=== PATIENT | female | born 1960 | race Caucasian/White ===

== ENCOUNTER → 2017-01-30 | Outpatient (CLI) | payer OTHER ==
--- NOTE | 2017-01-30 23:01 | MR ---
EXAMINATION TYPE: MR lumbar spine wo con DATE OF EXAM: 01/30/2017 COMPARISON: NONE HISTORY: Chronic low back pain, BLE radic x 30 years, no hx surgery/trauma TECHNIQUE: Multiplanar, multisequence imaging of the lumbar spine is performed without IV contrast. FINDINGS: Localizer image shows slight levoconvex scoliosis centered at thoracolumbar junction. Sagit jackson images of the lumbar spine show vertebral body heights and alignment to appear satisfactory. Mult ilevel disc desiccation is present. There is moderate disc space narrowing L1-L2 level and mild disc space narrowing L3-L4 level. Multilevel posterior disc herniations are seen on sagittal images. Incr eased signal posteriorly consistent with annular tear is noted L4-L5 level. The conus medullaris is n ormal in position and signal ending superior L1 level. The bone marrow signal intensity is within no rmal limits. Axial images beginning at T12-L1 level which is felt within normal limits. Axial images at L1-L2 level mild to moderate broad-based posterior disc protrusion mildly facing ante rior thecal sac. Bilateral neural foramina are patent. Axial images at L2-L3 level shows mild broad-based disc bulge mildly effacing the anterior thecal sac . Bilateral neural foramina are patent. Axial images at L3-L4 level broad-based posterior disc protrusion and mild facet degenerative changes bilaterally. There is mild effacement of the anterior thecal sac. There is mild bilateral anterior i nferior neural foraminal narrowing. Axial images at L4-L5 level show mild to moderate facet degenerative changes bilaterally. There is br oad disc bulge with focal central disc protrusion component effacing the anterior thecal sac on axial image 10. Bilateral neural foramina are patent at this level. Axial images at L5-S1 level show mild to moderate left greater than right facet degenerative changes bilaterally. Spinal canal is preserved. Bilateral neural foramina are patent. No suspicious retroperitoneal findings are identified. IMPRESSION: Multilevel degenerative changes in lumbar spine as detailed above.
== END | disposition home or self-care (01) ==
LOC: RADMRIMAIN 20:57
PROVIDERS: ATTEND Psychiatry & Neurology Neurology
DX: M47.816 Spondylosis without myelopathy or radiculopathy, lumbar region (principal); Z88.1 Allergy status to other antibiotic agents
CPT/HCPCS: 72148

== ENCOUNTER → 2017-10-02 | Outpatient (CLI) | payer OTHER ==
--- NOTE | 2017-10-03 12:14 | MM ---
Reason for exam: screening (asymptomatic). Last mammogram was performed 1 year and 11 months ago. History: Patient is postmenopausal and is nulliparous. Took estrogen for 2 years. Physical Findings: A clinical breast exam by your physician is recommended on an annual basis and results should be correlated with mammographic findings. MG 3D Screening Mammo W/Cad Bilateral CC and MLO view(s) were taken. Prior study comparison: November 04, 2015, mammogram, performed at [facility]. December 16, 2010, mammogram, performed at [facility]. The breast tissue is heterogeneously dense. This may lower the sensitivity of mammography. Stable benign calcifications in the left breast. Enlarged axillary lymph nodes bilaterally. ASSESSMENT: Incomplete: need additional imaging evaluation, BI-RAD 0 RECOMMENDATION: Ultrasound of both breasts. (axilla) [facility] will attempt to contact patient to return for ultrasound.
== END | disposition home or self-care (01) ==
LOC: RADMAMWWP 15:32
PROVIDERS: ATTEND Internal Medicine Geriatric Medicine
DX: Z12.31 Encounter for screening mammogram for malignant neoplasm of breast (principal)
CPT/HCPCS: 77063; 77067

== ENCOUNTER → 2017-10-05 | Outpatient (CLI) | payer OTHER ==
--- NOTE | 2017-10-05 15:52 | US ---
EXAMINATION TYPE: US thyroid st tissue head/neck DATE OF EXAM: 10/05/2017 COMPARISON: NONE CLINICAL HISTORY: 56-year-old female E04.1 Thyroid nodule;. Soft tissue palpable area on rt lateral n roman TECHNIQUE: Multiple sonographic images of the thyroid gland are obtained. FINDINGS: GLAND SIZE: Right Lobe: 3.1 x 1.1 x 1.1cm Overall Parenchyma: homogeneous Left Lobe: 3.3 x 1.0 x 0.8 cm Overall Parenchyma: homogeneous Isthmus Thickness: 0.2 cm NODULES RIGHT: # of nodules measured on right: 0 LEFT: # of nodules measured on left: 0 ISTHMUS: # of nodules measured in the isthmus: 0 Scanned over the right lateral upper soft tissue palpable mass. There is a 2.6 x 1.7 x 2.0cm solid hypoechoic vascular mass located just below the ear/mandible. IMPRESSION: 1. Thyroid gland without discrete nodules. 2. Additional targeted scanning at the patient's right upper neck palpable site shows a 2.6 cm solid, vascular mass. Tissue sampling is recommended either of this or the patient's axillary lymphadenopat hy to exclude neoplasm/metastatic disease.
--- NOTE | 2017-10-09 09:51 | USB ---
Reason for exam: additional evaluation requested from abnormal screening. History: Patient is postmenopausal and is nulliparous. Took estrogen for 2 years. Physical Findings: Nurse Summary: bilateral palpable axilla lumps (nurse mj). US Breast Workup Limited CR Right limited breast ultrasound including focal area of concern, retroareolar and axilla demonstrates a 4.0 x 1.9 x 3.1cm nodule in the axilla. Left limited breast ultrasound including focal area of concern, retroareolar and axilla demonstrates a 3.9 x 2.3 x 2.8cm nodule in the axilla. Multiple lymph nodes bilaterally, largest measured. Differential considerations include entities such as metastatic disease, leukemia/lymphoma, sarcoid, systemic infections and connective tissue disorders. These results were verbally communicated with the patient and result sheet given to the patient on 10/05/17. ASSESSMENT: Suspicious, BI-RAD 4 RECOMMENDATION: Surgical consultation and ultrasound core biopsy of both breasts. (suspicious area in axilla) Patient request to see Dr. Vasquez for surgical consult, [place] at the office states Dr. Vasquez will review reports from thyroid u/s and axilla u/s on 10/10 and office to contact pt. to schedule appt. Dr. Aguirre office notified. Patient notified to expect phone call from Dr. Vasquez office. PRELIMINARY REPORT CALLED AND FAXED TO DR. VASQUEZ ON 10/09/17.
== END | disposition home or self-care (01) ==
LOC: RADUSWWP 12:07
PROVIDERS: ATTEND Internal Medicine Geriatric Medicine
DX: R92.8 Other abnormal and inconclusive findings on diagnostic imaging of breast (principal); E04.2 Nontoxic multinodular goiter
CPT/HCPCS: 76536

== ENCOUNTER → 2017-11-12 | Day surgery (SDC) | payer OTHER ==
[2017-11-12 13:31] VITALS: RESP 16; BMI 21.6
[2017-11-12 15:08] VITALS: BP 128/79; PULSE 80; TEMP 97.8
--- NOTE | 2017-11-13 11:25 | USB ---
EXAMINATION TYPE: US breast needle core LT, US breast needle core RT DATE OF EXAM: 11/12/2017 COMPARISON: 10/05/2017 and 10/02/2017 CLINICAL HISTORY: R59.0 AXILLARY LYMPHADENOPATHY. PROCEDURE: Benefits and risks were discussed with the patient. Preprocedural consent and preprocedural timeout were performed. The bilateral axilla was scanned bilaterally adenopathy. The safest locations were identified with peripheral vascular flow evaluated on ultrasound. The area was sterilely prepped and draped. 10 cc of lidocaine buffered with bicarbonate was utilized to anesthetize the skin surface and deeper subcutaneous soft tissues leading up to the bilateral axillary adenopathy. The left axillary lymph node was first biopsied with 3 core samples utilizing a 18-gauge Temno device and subsequently the right axilla was biopsied utilizing a 16-gauge Bard device. Biopsies were performed under direct ultrasound guidance. Additionally bilateral Hydromark biopsy marker clips were placed within the biopsied bilateral lymph nodes. Postprocedural evaluation for hematoma was negative sonographically. Patient tolerated the procedure well. Hemostasis was achieved. The patient was kept in the radiology department for short stay and discharged in stable condition. IMPRESSION: Successful ultrasound-guided biopsy of bilateral axillary adenopathy with placement of postprocedural Hydromark clips. Samples were sent to the laboratory department for analysis and flow cytometry. Pathology pending. Pathology Result: Malignant A. 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 See comment. B. 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 See comment. Recommendation Surgical consult of the left breast. (follicular lymphoma multiple lymph nodes) MTDD
== END ==
LOC: RADUSWWP 12:55
PROVIDERS: ATTEND Student in an Organized Health Care Education/Training Program
DX: C82.14 Follicular lymphoma grade II, lymph nodes of axilla and upper limb (principal); Z88.0 Allergy status to penicillin
CPT/HCPCS: 88305; 88342; 88341; 76942; 38505; A4648; J2001; 19084

== ENCOUNTER → 2017-11-24 | Outpatient (CLI) | payer OTHER ==
--- NOTE | 2017-11-25 20:55 | PE ---
EXAMINATION TYPE: PET CT fusion skull to thigh DATE OF EXAM: 11/24/2017 CLINICAL HISTORY: 56-year-old female initial staging lymphoma diagnosed in the neck on 10/13/2017. TECHNIQUE: Following the intravenous administration of 11.4 mCi of F-18 FDG, whole body images are performed from the skull base to the midthigh. Images are reviewed on the computer in the coronal, a xial, and sagittal planes. Reconstructed rotating images are created on independent workstation and reviewed on the computer. A localization and attenuation correction CT is performed in conjunction with the PET scan. Glucose level: 80 mg/dL CTDI: 2.75 mGy DLP: 245.16 mGy-cm COMPARISON: None. FINDINGS: PET: Asymmetric enlargement of the left mandibular foramen possibly due to lymphomatous involvement, max S UV 3.7. There is some focal thickening and increased density within the subcutaneous fat of the right posteri or upper neck, max SUV 2.8, possible site of a previous excisional lymph node biopsy. This can be cor related clinically. There is masslike soft tissue enlargement in the right nasopharynx, max SUV 5.3. Right parotid space lymphadenopathy measuring up to 2.4 cm, max SUV 7.6. Right submandibular lymph nodes measure up to 1.7 cm, max SUV 6.7. Left submandibular space lymph nodes measure 2.0 cm, max SUV 7.3. Station 2A lymph noted on the left measures 1.2 cm, max SUV 7.0. A 1 cm station 3 lymph node on the left, max SUV 5.0. Conglomerate tyshawn mass at the right thoracic inlet measures 3.0 x 1.9 cm, max SUV 5.9. Right subpectoral lymph node measures 2.1 cm, max SUV 7.9. Multiple right axillary lymph nodes measure up to 3.1 cm, maximum SUV 5.6. Multiple left axillary lymph nodes measure up to 3.5 cm, maximum CBD 6.3. Precarinal lymph node measures 1.9 cm, max SUV 6.5. Small 1.1 cm subcarinal lymph node shows maximum CBD 0.5. There is focal patchy groundglass measuring 1.2 cm and the posterior right lower lobe without any sig nificant FDG uptake, likely a small infectious/inflammatory focus. Average liver SUV 1.9. Variable segmental, moderately intense FDG uptake along the ascending colon, max SUV 6.2 likely physi ologic. There is a rounded structure measuring 2.2 cm in the posterior, upper left adnexa without any FDG upt clari, likely corresponding to the ovary or an underlying ovarian cyst. Otherwise, physiologic FDG uptake within the body. ATTENUATION CORRECTION CT: Mild mucosal thickening left sided ethmoid air cells. Mastoid air cells well pneumatized. Cervical ly mphadenopathy described above and soft tissue mass in the right nasopharynx. Heart normal size without pericardial effusion. Ascending aorta is ectatic and 3.9 cm. Mild centrilob ular emphysema. Dependent atelectasis. No consolidation or pleural effusion. No dilated small bowel, free fluid, or free air. No mesenteric or retroperitoneal lymphadenopathy. No rmal appendix. Mild stool burden with occasional colonic diverticula. There is a tiny 1.1 cm right pa ramedian umbilical hernia with a narrow 3 mm neck. Bladder nondistended. Uterus surgically absent. Left-sided pelvic phleboliths. Right ovary not clearl y seen. Bones: Degenerative changes lower lumbar spine. Levoconvex curvature thoracolumbar junction. No osseo us destructive process. IMPRESSION: 1. Lymphomatous involvement within the head and neck includes: Right nasopharyngeal mass, right parot id space, bilateral tyshawn stations 1B, left level 2A and left level 3. There is also asymmetric enlar gement of the left mandibular foramen with associated hypermetabolism suggesting lymphomatous involve ment. 2. Lymphomatous involvement within the chest includes: 3.0 cm tyshawn mass at the right thoracic inlet, right subpectoral lymph node (2.1 cm), bilateral axillary lymph nodes (measuring up to 3.5 cm), and precarinal and subcarinal lymph nodes (up to 1.9 cm). 3. No disease below the diaphragm. There is some focal soft tissue and skin thickening along the rig ht posterior upper neck that has mild uptake and may correspond to site of a recent excisional lymph node biopsy. Clinically correlate.
== END | disposition home or self-care (01) ==
LOC: RADPETMAIN 14:04
PROVIDERS: ATTEND Internal Medicine Hematology & Oncology
DX: C82.18 Follicular lymphoma grade II, lymph nodes of multiple sites (principal)
CPT/HCPCS: 78815; A9552

== ENCOUNTER → 2018-03-16 | Outpatient (CLI) | payer OTHER | LOC: RADPETMAIN 07:55 | PROVIDERS: ATTEND Internal Medicine Hematology & Oncology | DX: Z53.9 Procedure and treatment not carried out, unspecified reason (principal) ==

== ENCOUNTER → 2018-03-16 | Outpatient (CLI) | payer OTHER ==
--- NOTE | 2018-03-18 13:14 | PE ---
EXAMINATION TYPE: PET CT fusion skull to thigh DATE OF EXAM: 03/16/2018 COMPARISON: No prior CT examinations. Prior PET/CT: 11/24/2017 HISTORY: Lymphoma, C 82.181 TECHNIQUE: Following the intravenous administration of 12.72 mCi of F-18 FDG, whole body images are performed from the skull vertex to the midthigh. Images are reviewed on the computer in the coronal, axial, and sagittal planes. Reconstructed rotating images are created on independent workstation an d reviewed on the computer. A localization and attenuation correction CT is performed in conjunctio n with the PET scan. DLP: 306.38 mGycm SCAN: Subsequent Blood glucose: 97 mg/dL Average Mediastinum SUV: 1.24 Average Liver SUV: 1.94 FINDINGS: Brain: Imaging is performed through the entire brain. No suspicious asymmetric uptake is evident. No suspicious photopenic defects are evident. NECK: No abnormal uptake THORAX: Some very vague increased uptake within the small lymph node in the left axillary region is p resent with an SUV value of 0.86. This within the normal range. PET image 102. Suspicious uptake with in the axillary regions is not evident. No suspicious mediastinal or hilar uptake is evident. ABDOMEN: No abnormal uptake PELVIS: No abnormal uptake OSSEOUS STRUCTURES: No abnormal uptake LOCALIZATION CT: There are scattered small axillary lymph nodes present. The ascending thoracic aorta at the level of main pulmonary artery is 3.3 cm. The main pulmonary artery bifurcation is 2.8 cm. Th e appendix is unremarkable. Some fecal debris is within the distal colon. COMPARISON: There is been significant resolution of the previous adenopathy. IMPRESSION: 1. No suspicious uptake to suggest residual or recurrent lymphoma. There is been significant improvem ent of previous hyperintense activity within scattered lymphadenopathy.
== END | disposition home or self-care (01) ==
LOC: RADPETMAIN 07:52
PROVIDERS: ATTEND Internal Medicine Hematology & Oncology
DX: C82.18 Follicular lymphoma grade II, lymph nodes of multiple sites (principal)
CPT/HCPCS: 78815; A9552

== ENCOUNTER → 2019-06-27 | Outpatient (CLI) | payer OTHER ==
--- NOTE | 2019-07-01 07:43 | PE ---
Nuclear medicine PET/CT HISTORY: Lymphoma of the neck, subsequent Patient received 10.1 mCi F-18 FDG intravenously in delayed scanning was performed from the skull bas e to the mid thighs. Localization and attenuation correction CT scan was performed. Correlation to prior nuclear medicine PET/CT 03/16/2018 neck, chest: Along the masseter muscles there is increased uptake. Focus of uptake is also present al butch the level of the tongue or anterior maxilla. In the submandibular location on the right, there is a lymph node which is enlarged and shows associated hypermetabolic uptake. This is an interval findi ng. SUV is 4.7. Small right axillary nodes show some mild uptake, SUV 1.5. There is no mediastinal ad enopathy. Minimal uptake present in a nonenlarged node in the retrocaval pretracheal mediastinum. The re is no pleural or pericardial effusion. There is no evident lung mass. ABDOMEN: There is no liver mass. No retroperitoneal adenopathy or ascites. No suspicious hypermetabol ic uptake. No pelvic or inguinal adenopathy. Osseous structures are unremarkable. IMPRESSION: Abnormal uptake in the neck and right axilla. Masseter uptake may be due to bruxism
== END | disposition home or self-care (01) ==
LOC: RADPETMAIN 13:07
PROVIDERS: ATTEND Internal Medicine Hematology & Oncology
DX: R93.89 Abnormal findings on diagnostic imaging of other specified body structures (principal); C82.18 Follicular lymphoma grade II, lymph nodes of multiple sites
CPT/HCPCS: 78815; A9552

== ENCOUNTER → 2019-07-11 | Outpatient (CLI) | payer OTHER | END | disposition home or self-care (01) | LOC: LABWHC1 09:56 | PROVIDERS: ATTEND Internal Medicine Hematology & Oncology | DX: Z11.59 Encounter for screening for other viral diseases (principal) ==

== ENCOUNTER → 2019-10-03 | Outpatient (CLI) | payer OTHER ==
--- NOTE | 2019-10-06 17:27 | PE ---
Nuclear medicine PET/CT HISTORY: Lymphoma, subsequent Patient received 11.4 mCi F-18 FDG intravenously and delayed scanning was performed from the skull ba se to the mid thighs. Localization and attenuation correction CT scan was performed. Correlation to prior nuclear medicine PET/CT 06/27/2019 Chest and neck: Submandibular node on the right shows some associated uptake and is mildly enlarged. There is some uptake noted at the level of the level of the tip of the tongue which is indeterminate. Uptake along the muscles of mastication on the left may be physiologic as is the musculature activit y of the right pectoral region and about the shoulders. There is retrocaval pretracheal node which is mildly enlarged and shows mild uptake. There is no pleural or pericardial effusion. No evident lung mass. No evident uptake in the right axillary region as previously noted. ABDOMEN: No evident liver mass. No retroperitoneal adenopathy or suspicious hypermetabolic uptake. Pe ripherally calcified low dense lesion present in the left hemipelvis measures 2.9 cm in AP dimension and shows no uptake, no evident pelvic adenopathy or free fluid. Osseous structures are within normal limits. IMPRESSION: Mild mediastinal node enlargement is an interval finding, retrocaval pretracheal node has increased in size slightly in the interval. Uptake again noted in the right submandibular node. Righ t axillary node no longer shows uptake. There is uptake at the level of the tip of the tongue which m ay be physiologic.
== END | disposition home or self-care (01) ==
LOC: RADPETMAIN 11:11
PROVIDERS: ATTEND Internal Medicine Hematology & Oncology
DX: C82.18 Follicular lymphoma grade II, lymph nodes of multiple sites (principal); Z92.21 Personal history of antineoplastic chemotherapy
CPT/HCPCS: 78815; A9552

== ENCOUNTER → 2020-01-02 | Outpatient (CLI) | payer OTHER ==
--- NOTE | 2020-01-05 10:49 | PE ---
EXAMINATION TYPE: PET CT fusion skull to thigh DATE OF EXAM: 01/02/2020 COMPARISON: Prior PET/CT October 03, 2019 and older studies. HISTORY: Lymphoma progress study. Originally diagnosed November 2017 treated with chemotherapy through November 2019 TECHNIQUE: Following the intravenous administration of 11.43 mCi of F-18 FDG, whole body images are performed from the skull base to the midthigh. Images are reviewed on the computer in the coronal, a xial, and sagittal planes. Reconstructed rotating images are created on independent workstation and reviewed on the computer. A noncontrast CT is performed in conjunction with the PET scan. Blood glu cose level equals 97. SCAN: Subsequent Scan FINDINGS: Mean SUV mediastinum: 0.96 Mean SUV liver: 1.83 SKULL BASE AND NECK: Stable in size right submandibular lymph node measuring 1.1 x 0.9 cm current ma x SUV 2.63. Symmetric diffuse masseter uptake on current study suggests recent meal ingestion prior t o scanning which is not advised. No new areas of abnormal hypermetabolic uptake or suspicious adenopa thy. CHEST, MEDIASTINUM, AND HILAR REGION: There is persistent suspicious pericarinal lymph node measuring 1.3 x 0.8 cm, max SUV is 4.29 on axial image 81. No new areas of abnormal hypermetabolic uptake. No axillary adenopathy noted. ABDOMEN AND PELVIS: No new areas of abnormal hypermetabolic uptake. No new adenopathy. No new suspic ious focal uptake in liver or spleen. OSSEOUS STRUCTURES: No new suspicious hypermetabolic uptake. OTHER CT: New small air-fluid level in the right maxillary sinus, correlate clinically. Coronary artery calcification redemonstrated which is noted marker for underlying coronary artery dis ease. Patient has little intra-abdominal fat making evaluation suboptimal. There is right-sided pelvic phle bolith. Scoliosis centered thoracolumbar junction redemonstrated. IMPRESSION: Improved abnormal hypermetabolic uptake right submandibular lymph node. Persistent hyperm etabolic uptake in the paracarinal lymph node however. No new areas of abnormal hypermetabolic uptake .
== END | disposition home or self-care (01) ==
LOC: RADPETMAIN 11:23
PROVIDERS: ATTEND Internal Medicine Hematology & Oncology
DX: C82.18 Follicular lymphoma grade II, lymph nodes of multiple sites (principal); Z92.21 Personal history of antineoplastic chemotherapy
CPT/HCPCS: 78815; A9552

== ENCOUNTER → 2020-07-09 | Outpatient (CLI) | payer OTHER ==
--- NOTE | 2020-07-12 06:28 | PE ---
EXAMINATION TYPE: PET CT fusion skull to thigh DATE OF EXAM: 07/09/2020 COMPARISON: Prior PET/CT January 02, 2020 and older studies. HISTORY: History of grade 2 follicular lymphoma diagnosed 2017 , completed chemotherapy May 2020 TECHNIQUE: Following the intravenous administration of 10.0 mCi of F-18 FDG, whole body images are p erformed from the skull base to the midthigh. Images are reviewed on the computer in the coronal, ax ial, and sagittal planes. Reconstructed rotating images are created on independent workstation and r eviewed on the computer. A localization and attenuation correction CT is performed in conjunction w ith the PET scan. Blood glucose level equals 82. SCAN: Subsequent Scan FINDINGS: Mean SUV mediastinum: 0.86 Mean SUV liver: 1.97 SKULL BASE AND NECK: Stable in size right submandibular lymph node measuring 1.1 x 0.9 cm current ma x SUV 1.83. Asymmetric left-sided masseter hypermetabolic uptake current study Max SUV 6.18 without obvious focal mass or adenopathy likely physiologic as there was symmetric more prominent uptake on prior. Correlate clinically. No new areas of suspicious hypermetabolic adenopathy on current study. CHEST, MEDIASTINUM, AND HILAR REGION: Improved pericarinal lymph node now punctate in size, is ametab olic near axial image 68. No new areas of abnormal hypermetabolic uptake. No axillary adenopathy noted. ABDOMEN AND PELVIS: No new areas of abnormal hypermetabolic uptake. No new adenopathy. No new suspic ious focal uptake in liver or spleen. OSSEOUS STRUCTURES: No new suspicious hypermetabolic uptake. OTHER CT: Coronary artery calcification redemonstrated which is noted marker for underlying coronary artery dis ease. Ectasia of the ascending aorta measuring up to 3.6 cm in diameter. Patient has little intra-abdominal fat making evaluation suboptimal. There are occasional scattered t iny pelvic phleboliths. Scoliosis centered upper lumbar spine redemonstrated. IMPRESSION: Positive treatment response. Improved pericarinal lymph node. No new areas of abnormal hy permetabolic uptake or adenopathy. Asymmetric left masseter uptake on current study noted.
== END | disposition home or self-care (01) ==
LOC: RADPETMAIN 10:05
PROVIDERS: ATTEND Internal Medicine Hematology & Oncology
DX: C82.10 Follicular lymphoma grade II, unspecified site (principal)
CPT/HCPCS: 78815; A9552

== ENCOUNTER → 2021-07-12 | Outpatient (CLI) | payer OTHER ==
[~2021-07-12] MED LIST: TIXAGEVIMAB/CILGAVIMAB (EUA) 300 MG/3 ML COMBO.PKG IM NR
[2021-07-12 11:22] VITALS: RESP 16; TEMP 98.3
[2021-07-12 12:28] VITALS: BP 151/89; PULSE 71
== END | disposition home or self-care (01) ==
LOC: PROCWHC3 10:43
PROVIDERS: ATTEND Internal Medicine Hematology & Oncology
DX: C82.18 Follicular lymphoma grade II, lymph nodes of multiple sites (principal)
CPT/HCPCS: Q0220; M0220

== ENCOUNTER → 2022-12-19 | Outpatient (CLI) | payer OTHER ==
--- NOTE | 2022-12-19 12:34 | MR ---
EXAMINATION TYPE: MR lumbar spine wo con DATE OF EXAM: 12/19/2022 COMPARISON: MRI lumbar spine 01/30/2017 HISTORY: Low back pain into lizz lower legs TECHNIQUE: Multiplanar, multisequence images of the lumbar spine were acquired without IV contrast. FINDINGS: Lumbar segments are intact. No paraspinal masses are identified. Conus medullaris has a normal appe arance. Diffusely heterogenous bone marrow signal. Levocurvature of the lumbar spine with apex at L3. No spondylolisthesis. Stable T2 hyperintense 2.8 cm lesion anterior to the S1-S2 vertebral bodies wi th thin septation. Stability indicates a benign process. L1-L2: Broad-based disc bulge with mild effacement of the intrathecal sac. Bilateral facet arthropath y. Left neural foramen is patent. Moderate to severe right neural foraminal stenosis. L2-L3: No herniation, protrusion or disc bulging. No canal stenosis is present. Bilateral facet arth ropathy with moderate right neuroforaminal stenosis. The left neural foramen is patent. L3-L4: Broad-based disc bulge with ligamentum flavum buckling and bilateral facet arthropathy contrib shweta to minimal central canal stenosis. Moderate left and mild right neuroforaminal stenosis. L4-L5: Central disc protrusion with mild to moderate effacement of the anterior thecal sac. Bilateral facet arthropathy and ligamentum flavum buckling. Mild right and moderate left neural foraminal sten osis. L5-S1: No herniation, protrusion or disc bulging. No canal stenosis is present. Bilateral facet arth ropathy. Foramina are patent bilaterally. IMPRESSION: 1. L4-L5 disc herniation with bilateral facet arthropathy and ligamenta flavum buckling contribute to [id number] central canal stenosis. Mild right and moderate left neural foraminal stenosis at t his level. 2. Multilevel degenerative disc disease and facet arthropathy as described above.
== END | disposition home or self-care (01) ==
LOC: RADMRIMAIN 10:53
PROVIDERS: ATTEND Orthopaedic Surgery
DX: M47.816 Spondylosis without myelopathy or radiculopathy, lumbar region (principal); M48.061 Spinal stenosis, lumbar region without neurogenic claudication; M99.73 Connective tissue and disc stenosis of intervertebral foramina of lumbar region; M51.36 Other intervertebral disc degeneration, lumbar region
CPT/HCPCS: 72148

== ENCOUNTER → 2023-01-23 | Outpatient (CLI) | payer OTHER ==
--- NOTE | 2023-01-23 13:49 | P.PAINPG ---
PQRS Measure Charge Sheet Comment: HISTORY OF PRESENT ILLNESS: A 62 yr old female as a referral from Dr Ghotra presents today w severe and chronic LBP > 2 yrs secondary to DDD, spondylosis and facet arthropathy without myelopathy for evaluation. Pt states pain level is provoked at 7 /10 in intensity, constant, localized in the mid to lower lumbar spine, predominantly axial, achy in character w occasional shooting pain towards the BLEs. Pain is provoked by over activity. Pain is alleviated by injections in the past, PT x 3 wks which she is currently in, medications (Cymbalta, Flexeril), topical BioFreeze gel, heat, repositioning and rest. Oswestry axial pain score at 24. PMH: OA, SLE, RA, Hypothyroidism, Anxiety PSH: Denies SH: Works as a nurse. +tobacco use, No ETOH abuse, No illicit drug use FH: Non contributory All: See list Meds: See list REVIEW OF ORGAN SYSTEMS: CONSTITUTIONAL: No fevers or chills. No recent weight loss. NEUROLOGICAL: + numbness and tingling along the distal extremities. No seizure disorders or headaches. MUSCULOSKELETAL: + pain PSYCHIATRIC: Denies current depression or suicidal thoughts. Physical Examinations : Constitutional : Cooperative , not in acute distress . Neurologic : Cranial nerve II to XII intact. No focal ne urological deficits. Psychiatric : alert & oriented x 3. Matching mood & appropriate affect. Judgment & insight intact. Musculoskeletal : Cervical Spine Motor strength in the deltoid and biceps: Normal right side. Normal Left side Motor strength biceps and the wrist extensors: Normal right side . Normal left side Motor strength in the triceps muscle: Normal right side. Normal left side Deep tendon reflexes: Normal at the biceps. Normal at Brachioradialis. Normal at triceps Vertebral body tenderness to deep pa lpation over Cervical facet loading test: positive bilaterally Spurling test: positive bilaterally Neck distraction test: positive bilaterally Marie sign: positive bilaterally Lumbar spine Motor strength lower extremities ,thigh and legs 5/5 Right side , 5/5 Left side Deep tendon reflexes : Normal Knee Jerk. Normal Ankle Jerk Vertebral body tenderness over Glover Test positive Lumbar facet Loading Test: positive Right / positive Left over L4-L5, L5-S1 Range of motion of the lumbar spine Flexion 30 degrees, extension 10 degrees Straight Leg Raise test: Left/ Right positive at degrees Aide test: positive right / positive left. Severe tenderness over the Sacroiliac joint on the Right / Left sides Gaenslen test: positive bilaterally Seated flexion test: positive bilaterally. Sacral spine : Severe tenderness over the Sacroiliac joint: right side / left side Range of motion: Flexion of the lumbar spine <60 degrees Range of motion: Extension of the lumbar spine <20 degrees Gaenslen's Test positive Aide test: positive right side / left side Thigh Thrust Test Sacral Thrust Test Imaging: X-ray of the lumbar spine from 11/24/22 reviewed MRI noncontrast of the lumbar spine from 12/19/22 reviewed Assessment/ Plan : Lumbar Disk Collapses, Dextroscoliosis Recommendation of BL RFA L3-L5. Risks, benefits of procedure discussed and patient verbalized understanding. Admits to anti- coagulant use or medical history of diabetes. Protocol for discontinuation/ continuation of medications adan procedure discussed. Minimal anesthesia provided, if clinically indicated, consisting of Versed and Fentanyl. All questions answered. I have spent greater than 30 minutes on patient care today. Dr Millan was available by phone for the evaluation of this patient. The time was used to review the medical records including relevant urine studies and Prescription history (MAPs), review of the available imaging, evaluation and examination of the patient, coordination of care with the medical staff and if applicable referring physicians, as well as creation of the medical record PQRS Narrative: Smoking Status Current every day smoker Home Medications: Ambulatory Orders ALPRAZolam [Xanax] 0.5 mg PO BID 11/05/17 Cyclobenzaprine [Flexeril] 10 mg PO BID 11/05/17 Desvenlafaxine Succinate [Pristiq] 100 mg PO DAILY 11/05/17 Docusate Sodium [Dok] 100 mg PO BID 11/05/17 Hydroxychloroquine Sulfate [Plaquenil] 200 mg PO BID 11/05/17 Levothyroxine Sodium [Synthroid] 75 mcg PO DAILY 11/05/17 busPIRone HCl [Buspar] 10 mg PO BID 11/05/17 Vitamin B Complex 2 each PO DAILY 07/11/19 DULoxetine HCL [Cymbalta] 30 mg PO HS 07/12/21 DULoxetine HCL [Cymbalta] 60 mg PO DAILY 07/12/21 Prochlorperazine [Compazine] 10 mg PO Q6H PRN 07/12/21 Sennosides/Docusate Sodium [Senna-S 8.6-50 mg Tablet] 2 tab PO DAILY 07/12/21 oxyCODONE HCL/ACETAMINOPHEN [Percocet 10-325 mg] 1 tab PO Q6H PRN 07/12/21 Controlled Substance Measures - Controlled Substance Measures Is patient prescribed a controlled substance at discharge?: No
[2023-01-23 14:28] VITALS: BP 177/102; PULSE 78; RESP 16; TEMP 98.8
== END ==
LOC: PNWHC3 13:19
PROVIDERS: ATTEND Specialist
DX: M54.14 Radiculopathy, thoracic region (principal); M54.16 Radiculopathy, lumbar region; M48.56XA Collapsed vertebra, not elsewhere classified, lumbar region, initial encounter for fracture; M41.80 Other forms of scoliosis, site unspecified; F17.200 Nicotine dependence, unspecified, uncomplicated; Z88.0 Allergy status to penicillin; Z88.1 Allergy status to other antibiotic agents
CPT/HCPCS: 99211

== ENCOUNTER 2023-02-02 07:57 | Day surgery (SDC) | payer OTHER ==
[~2023-02-02 07:57] MED LIST changes: +LACTATED RINGERS 1,000 ML IV SCH; -TIXAGEVIMAB/CILGAVIMAB (EUA) 300 MG/3 ML COMBO.PKG IM NR
[2023-02-02 08:41] VITALS: TEMP 98.4
[2023-02-02] MEDS ORDERED: MIDAZOLAM 2 MG/2 ML VIAL ONE (08:59)
[2023-02-02] MEDS ORDERED: fentaNYL (PF) 50 MCG/ML 2 ML AMP ONE (08:59)
[2023-02-02] MEDS ORDERED: methylPREDNISolone ACETATE 40 MG/ML 1 ML VIAL ONE (09:07)
[2023-02-02] MEDS ORDERED: ROPIVACAINE 5MG/ML 20ML VIAL ONE (09:07)
--- NOTE | 2023-02-02 09:17 | P.PCN ---
Date of Procedure: 02/02/23 Procedure(s) Performed: PREOPERATIVE DIAGNOSIS : 1- Lumbar spondylosis with Facet Arthropathy without myelopathy . 2- Lumber degenerative disc disease POSTOPERATIVE DIAGNOSIS: 1- Lumbar spondylosis with Facet Arthropathy without myelopathy . 2- Lumber degenerative disc disease PROCEDURE: Diagnostic bilateral L3 , L4 , and L5 medial branch block under fluoroscopy guidance(fluoroscopy images available in the radiology Department ) ( To target the facet joint between Bilateral L4-5 , and L5-S1 )# 1ST ANESTHESIA:, Monitored anesthesia care as per anesthesia department. EBL: Minimal COMPLICATION: None PROCEDURE INDICATION: Chronic low back pain secondary to Facet arthropathy unresponsive to conservative treatment. PROCEDURE DESCRIPTION: the patient was seen and identified in the preop holding area , risks and benefits and possible complications of the procedure and alternative were discussed with the patient, and the patient agreed to proceed with the procedure and signed the consent and vital signs monitored during the procedure and fluoroscopy was used to maximize the benefit and accuracy of the needle placement, and sedation was given to decrease patient anxiety, patient was taken to the procedure room and placed in prone position vital signs monitored in the back prepped with chlorhexidine X3 then under strict sterile technique using a right oblique fluoroscopy ,the junction of the transverse process and the superior articulating process of the right L3 , L4 , and L5 vertebra which corresponding to the fluoroscopy image of the eye of the Carmine dog on the block side for the medial branches and subsequently , after local infiltration of skin and subcu tissuies with Ropivacaine 0.5 % , one mL at each level ,then 22-gauge Quincke-type needles , 3 needle was used , each one of them placed at the junction of the base of the transverse process and the superior articular process at the appropriate level, and the needle was advanced until the periosteum contacted, needle placement confirmed with AP oblique and lateral view and after appropriate needle placement confirmed, and after negative aspiration for heme and CSF and there was no paresthesia 1-1/2 mL of Ropivacaine 0.5% mixed with 20 mg Depo-Medrol , then half mL injected at each level after negative aspiration the needle subsequently removed and the same procedure repeated for the left side at left side at L3 , L4 and L5 levels. At the end of the procedure and the needles removed and a bandage applied after the skin was cleaned the cleaning solution patient taken to recovery room in stable condition and monitors in the recovery room for 20-30 minutes and discharged home in stable condition after discharge criteria met and patient will follow up with the pain clinic in 2-4 weeks
[2023-02-02] MEDS ORDERED: LACTATED RINGERS 1,000 ML IV ONE (09:20)
[2023-02-02 09:31] VITALS: PULSE 71; RESP 14
[2023-02-02 09:55] VITALS: BP 136/86
--- NOTE | 2023-02-02 10:56 | FL ---
EXAMINATION TYPE: FL guided pain mgmt statistic Intraoperative/procedural fluoroscopic services were provided. Total fluoroscopy time is 6 seconds with a total of 4 submitted images to PACS. Please see the operative/procedural note for further details. DAP: [id number] mGym2
== END 2023-02-02 10:03 ==
LOC: ORPAIN 07:57
PROVIDERS: ATTEND Specialist
DX: M51.36 Other intervertebral disc degeneration, lumbar region (principal); M47.816 Spondylosis without myelopathy or radiculopathy, lumbar region; G89.29 Other chronic pain; F17.200 Nicotine dependence, unspecified, uncomplicated; F12.90 Cannabis use, unspecified, uncomplicated; E03.9 Hypothyroidism, unspecified; F32.A Depression, unspecified; F41.9 Anxiety disorder, unspecified; M06.9 Rheumatoid arthritis, unspecified; M79.7 Fibromyalgia; K21.9 Gastro-esophageal reflux disease without esophagitis; Z85.72 Personal history of non-Hodgkin lymphomas; Z90.710 Acquired absence of both cervix and uterus; Z98.890 Other specified postprocedural states; Z88.0 Allergy status to penicillin
CPT/HCPCS: 64493; 64494 ×2; J2250; J1030; J3010; J2795

== ENCOUNTER → 2023-02-22 | Outpatient (CLI) | payer OTHER ==
[2023-02-22 09:42] VITALS: BP 162/100; PULSE 79; RESP 15; TEMP 98.3
--- NOTE | 2023-02-22 13:40 | P.PAINPG ---
Objective - Vital Signs Vital signs: Intake & Output 02/21/23 02/22/23 02/22/23 18:59 06:59 18:59 Weight 59.874 kg PQRS Measure Charge Sheet Comment: HISTORY OF PRESENT ILLNESS: A 62 yr old female presents today w severe and chronic LBP > 2 yrs secondary to DDD, spondylosis and facet arthropathy without myelopathy for evaluation s/p BL MBB L3-L5 #1. Pt state she experienced 100% pain relief x 3 d s/p procedure. Pt states pain level is provoked at 8 /10 in intensity, constant, localized in the mid to lower lumbar spine, predominantly axial, achy in character w occasional shooting pain towards the BLEs. Pain is provoked by over activity. Pain is alleviated by injections in the past, PT x 3 wks which she is currently in, medications, topical BioFreeze gel, heat, repositioning and rest. Oswestry axial pain score at 24. Interventional procedures include BL MBB L3-L5 x1 Medications include Cymbalta, Flexeril, BioFreeze REVIEW OF ORGAN SYSTEMS: CONSTITUTIONAL: No fevers or chills. No recent weight loss. NEUROLOGICAL: + numbness and tingling along the distal extremities. No seizure disorders or headaches. MUSCULOSKELETAL: + pain PSYCHIATRIC: Denies current depression or suicidal thoughts. Physical Examinations : Constitutional : Cooperative , not in acute distress . Neurologic : Cranial nerve II to XII intact. No focal neurological deficits. Psychiatric : alert & oriented x 3. Matching mood & appropriate affect. Judgment & insight intact. Musculoskeletal : Cervical Spine Motor strength in the deltoid and biceps: Normal right side. Normal Left side Motor strength biceps and the wrist extensors: Normal right side . Normal left side Motor strength in the triceps muscle: Normal right side. Normal left side Deep tendon reflexes: Normal at the biceps. Normal at Brachioradialis. Normal at triceps Vertebral body tenderness to deep palpation over Cervical facet loading test: positive bilaterally Spurling test: positive bilaterally Neck distraction test: positive bilaterally Marie sign: positive bilaterally Lumbar spine Motor strength lower extremities ,thigh and legs 5/5 Right side , 5/5 Left side Deep tendon reflexes : Normal Knee Jerk. Normal Ankle Jerk Vertebral body tenderness over Glover Test positive Lumbar facet Loading Test: positive Right / positive Left over L4-L5, L5-S1 Range of motion of the lumbar spine Flexion 30 degrees, extension 10 degrees Straight Leg Raise test: Left/ Right positive at degrees Aide test: positive right / positive left. Severe tenderness over the Sacroiliac joint on the Right / Left sides Gaenslen test: positive bilaterally Seated flexion test: positive bilaterally. Sacral spine : Severe tenderness over the Sacroiliac joint: right side / left side Range of motion: Flexion of the lumbar spine <60 degrees Range of motion: Extension of the lumbar spine <20 degrees Gaenslen's Test positive Aide test: positive right side / left side Thigh Thrust Test Sacral Thrust Test Imaging: X-ray of the lumbar spine from 11/24/22 reviewed MRI noncontrast of the lumbar spine from 12/19/22 reviewed Assessment/ Plan : Lumbar Disk Collapses, Dextroscoliosis Recommendation of BL MBB L3-L5 #2. Risks, benefits of procedure discussed and patient verbalized understanding. Admits to anti- coagulant use or medical history of diabetes. Protocol for discontinuation/ continuation of medications adan procedure discussed. Minimal anesthesia provided, if clinically indicated, consisting of Versed and Fentanyl. All questions answered. I have spent greater than 30 minutes on patient care today. Dr Millan was available by phone for the evaluation of this patient. The time was used to review the medical records including relevant urine studies and Prescription history (MAPs), review of the available imaging, evaluation and examination of the patient, coordination of care with the medical staff and if applicable referring physicians, as well as creation of the medical record PQRS Narrative: Smoking Status Current every day smoker Hx Alcohol Use (MH) Yes Home Medications: Ambulatory Orders ALPRAZolam [Xanax] 0.5 mg PO BID 11/05/17 Cyclobenzaprine [Flexeril] 10 mg PO BID 11/05/17 Desvenlafaxine Succinate [Pristiq] 100 mg PO QAM 11/05/17 Docusate Sodium [Dok] 100 mg PO BID 11/05/17 Hydroxychloroquine Sulfate [Plaquenil] 200 mg PO BID 11/05/17 Levothyroxine Sodium [Synthroid] 75 mcg PO QAM 11/05/17 busPIRone HCl [Buspar] 10 mg PO BID 11/05/17 Vitamin B Complex 2 each PO DAILY 07/11/19 DULoxetine HCL [Cymbalta] 60 mg PO BID 07/12/21 Sennosides/Docusate Sodium [Senna-S 8.6-50 mg Tablet] 2 tab PO DAILY 07/12/21 Buprenorphine [Butrans 10 MCG/HOUR] 10 mcg TRANSDERM Q5D 01/31/23 rOPINIRole HCL [Requip] 1 mg PO TID 01/31/23 Controlled Substance Measures - Controlled Substance Measures Is patient prescribed a controlled substance at discharge?: No
== END ==
LOC: PNWHC3 09:05
PROVIDERS: ATTEND Specialist
DX: M47.816 Spondylosis without myelopathy or radiculopathy, lumbar region (principal); M51.26 Other intervertebral disc displacement, lumbar region; M41.86 Other forms of scoliosis, lumbar region; Z88.0 Allergy status to penicillin; Z88.1 Allergy status to other antibiotic agents; F12.90 Cannabis use, unspecified, uncomplicated; F17.200 Nicotine dependence, unspecified, uncomplicated
CPT/HCPCS: 99211

== ENCOUNTER 2023-03-02 09:43 | Day surgery (SDC) | payer OTHER ==
[2023-02-27 10:48] VITALS: BMI 21.3
[2023-03-02 10:27] VITALS: RESP 16; TEMP 97.2
[2023-03-02] MEDS ORDERED: fentaNYL (PF) 50 MCG/ML 2 ML AMP ONE (10:36)
[2023-03-02] MEDS ORDERED: MIDAZOLAM 2 MG/2 ML VIAL ONE (10:36)
[2023-03-02] MEDS ORDERED: ROPIVACAINE 5MG/ML 20ML VIAL ONE (10:41)
--- NOTE | 2023-03-02 11:03 | P.PCN ---
Description of Procedure: Preprocedure diagnosis. 1. Lumbar spondylosis with facet joint arthropathy without myelopathy. 2. Lumbar degenerative disc disease. Postprocedure diagnosis. As above. Procedure done. Bilateral diagnostic block with local anesthetics at L3, L4, L5 medial branch to target the facet joint L4- 5 and L5-S1 with fluoroscopic guidance (fluoroscopy images are available in the radiology department) . Anesthesia. As per anesthesia department. In OR, continuous pulse ox, EKG, blood pressure and verbal communication was maintained. Blood loss. Minimal. Indication. The patient has low back pain secondary to lumbar facet joint arthropathy. Discussed the procedure and alternative and complications which includes infection, bleeding, nerve damage, paralysis ,aggravation of pain. Patient understands and all questions were answered. Patient iunderstands that if any pain relief occurs it will last for a few hours to a few days maximum. Procedure description. After getting consent patient was taken in the OR in prone position. Back prepped with chlorhexidine and draped in sterile fashion. After injecting 5 mL of plain 1% lidocaine subcutaneously, a 22-gauge spinal needle was introduced under tunnel vision of the fluoroscope at the junction of the superior articular process with RIGHT ala of the sacrum. With slight oblique fluoroscope, after injecting 5 mL of plain 1% lidocaine subcutaneously, a 22-gauge spinal needle was introduced under tunnel vision of the fluoroscope at the junction of the superior articular process with RIGHT L5 transverse process, junction of the superior articular process with the RIGHT L4 transverse process. Negative CSF, negative blood, negative paresthesia. After needle p osition confirmation by AP and crosstable lateral view, after negative aspiration, half milliliters of 0.5% ropivacaine were injected at each point. In exactly same way, LEFT sided injections were done at the following 3 points. Junction of the superior articular process with left ala of the sacrum, junction of the superior articular process with the left L5 transverse process, junction of the superior articular process with left L4 transverse process using 0.5 mL of 0.5% preservative-free ropivacaine at each point. Spinal needles were taken out and bandages were applied. Disposition. Patient tolerated the procedure well. No complication. Discharged home in stable condition.
[2023-03-02] MEDS ORDERED: IV FLUID CONTINUATION 1,000 ML IV ONE (11:04)
--- NOTE | 2023-03-02 11:18 | FL ---
EXAMINATION TYPE: FL guided pain mgmt statistic Intraoperative/procedural fluoroscopic services were provided. Total fluoroscopy time is 1 minute 5 seconds with a total of 4 submitted images [address] PACS. Pl ease see the operative/procedural note for further details. DAP: [id number] Gycm2
[2023-03-02 11:46] VITALS: BP 135/83; PULSE 71
== END 2023-03-02 11:45 | disposition home or self-care (01) ==
LOC: ORPAIN 09:43
PROVIDERS: ATTEND Pain Medicine Interventional Pain Medicine
DX: M47.816 Spondylosis without myelopathy or radiculopathy, lumbar region (principal); M51.36 Other intervertebral disc degeneration, lumbar region; I10 Essential (primary) hypertension; E03.9 Hypothyroidism, unspecified; F41.9 Anxiety disorder, unspecified; F32.A Depression, unspecified; M79.7 Fibromyalgia; K21.9 Gastro-esophageal reflux disease without esophagitis; M32.9 Systemic lupus erythematosus, unspecified; M06.9 Rheumatoid arthritis, unspecified; F17.200 Nicotine dependence, unspecified, uncomplicated; F12.90 Cannabis use, unspecified, uncomplicated; Z79.890 Hormone replacement therapy; Z79.899 Other long term (current) drug therapy; Z88.1 Allergy status to other antibiotic agents
CPT/HCPCS: 64493; 64494 ×2; J2250; J3010; J2795

== ENCOUNTER → 2023-03-15 | Outpatient (CLI) | payer OTHER ==
[2023-03-15 11:01] VITALS: BP 144/91; PULSE 101; RESP 15; TEMP 98.4
--- NOTE | 2023-03-15 14:35 | P.PAINPG ---
Objective - Vital Signs Vital signs: Intake & Output 03/14/23 03/15/23 03/15/23 18:59 06:59 18:59 Weight 62.596 kg PQRS Measure Charge Sheet Comment: HISTORY OF PRESENT ILLNESS: A 62 yr old female presents today w severe and chronic LBP > 2 yrs secondary to DDD, spondylosis and facet arthropathy without myelopathy for evaluation s/p BL MBB L3-L5 #2. Pt state she experienced 100% pain relief x 2.5 d s/p procedure. Pt states pain level is provoked at 10 /10 in intensity, constant, localized in the mid to lower lumbar spine, predominantly axial, achy in character w occasional shooting pain towards the BLEs. Pain is provoked by over activity. Pain is alleviated by injections in the past, PT x 4 wks which ended in Feb 2023, medications, topical BioFreeze gel, heat, repositioning and rest. Oswestry axial pain score at 24. Interventional procedures include BL MBB L3-L5 x2 Medications include Cymbalta, Flexeril, BioFreeze REVIEW OF ORGAN SYSTEMS: CONSTITUTIONAL: No fevers or chills. No recent weight loss. NEUROLOGICAL: + numbness and tingling along the distal extremities. No seizure disorders or headaches. MUSCULOSKELETAL: + pain PSYCHIATRIC: Denies current depression or suicidal thoughts. Physical Examinations : Constitutional : Cooperative , not in acute distress . Neurologic : Cranial nerve II to XII intact. No focal neurological deficits. Psychiatric : alert & oriented x 3. Matching mood & appropriate affect. Judgment & insight intact. Musculoskeletal : Cervical Spine Motor strength in the deltoid and biceps: Normal right side. Normal Left side Motor strength biceps and the wrist extensors: Normal right side . Normal left side Motor strength in the triceps muscle: Normal right side. Normal left side Deep tendon reflexes: Normal at the biceps. Normal at Brachioradialis. Normal at triceps Vertebral body tenderness to deep palpation over Cervical facet loading test: positive bilaterally Spurling test: positive bilaterally Neck distraction test: positive bilaterally Marie sign: positive bilaterally Lumbar spine Motor strength lower extremities ,thigh and legs 5/5 Right side , 5/5 Left side Deep tendon reflexes : Normal Knee Jerk. Normal Ankle Jerk Vertebral body tenderness over Glover Test positive Lumbar facet Loading Test: positive Right / positive Left over L4-L5, L5-S1 Range of motion of the lumbar spine Flexion 30 degrees, extension 10 degrees Straight Leg Raise test: Left/ Right positive at degrees Aide test: positive right / positive left. Severe tenderness over the Sacroiliac joint on the Right / Left sides Gaenslen test: positive bilaterally Seated flexion test: positive bilaterally. Sacral spine : Severe tenderness over the Sacroiliac joint: right side / left side Range of motion: Flexion of the lumbar spine <60 degrees Range of motion: Extension of the lumbar spine <20 degrees Gaenslen's Test positive Aide test: positive right side / left side Thigh Thrust Test Sacral Thrust Test Imaging: X-ray of the lumbar spine from 11/24/22 reviewed MRI noncontrast of the lumbar spine from 12/19/22 reviewed Assessment/ Plan : Lumbar Disk Collapses, Dextroscoliosis Recommendation of BL RFA L3-L5. Exhibited optimal pain relief w prior BL MBB procedures. Risks, benefits of procedure discussed and patient verbalized u nderstanding. Admits to anti- coagulant use or medical history of diabetes. Protocol for discontinuation/ continuation of medications adan procedure discussed. Minimal anesthesia provided, if clinically indicated, consisting of Versed and Fentanyl. All questions answered. I have spent greater than 30 minutes on patient care today. Dr Millan was available by phone for the evaluation of this patient. The time was used to review the medical records including relevant urine studies and Prescription history (MAPs), review of the available imaging, evaluation and examination of the patient, coordination of care with the medical staff and if applicable referring physicians, as well as creation of the medical record PQRS Narrative: Smoking Status Current every day smoker Hx Alcohol Use (MH) Yes Home Medications: Ambulatory Orders ALPRAZolam [Xanax] 0.5 mg PO BID 11/05/17 Cyclobenzaprine [Flexeril] 10 mg PO BID 11/05/17 Desvenlafaxine Succinate [Pristiq] 100 mg PO QAM 11/05/17 Docusate Sodium [Dok] 100 mg PO BID 11/05/17 Hydroxychloroquine Sulfate [Plaquenil] 200 mg PO BID 11/05/17 Levothyroxine Sodium [Synthroid] 75 mcg PO QAM 11/05/17 busPIRone HCl [Buspar] 10 mg PO BID 11/05/17 Vitamin B Complex 2 each PO DAILY 07/11/19 DULoxetine HCL [Cymbalta] 60 mg PO BID 07/12/21 Sennosides/Docusate Sodium [Senna-S 8.6-50 mg Tablet] 2 tab PO DAILY 07/12/21 rOPINIRole HCL [Requip] 1 mg PO TID 01/31/23 Buprenorphine [Butrans 5 MCG/HR] 1 each TRANSDERM Q5D 02/27/23 amLODIPine [Norvasc] 5 mg PO DAILY 02/27/23 Controlled Substance Measures - Controlled Substance Measures Is patient prescribed a controlled substance at discharge?: No
== END ==
LOC: PNWHC3 10:37
PROVIDERS: ATTEND Specialist
DX: M41.86 Other forms of scoliosis, lumbar region (principal); F17.200 Nicotine dependence, unspecified, uncomplicated; F12.90 Cannabis use, unspecified, uncomplicated; Z88.0 Allergy status to penicillin; Z88.8 Allergy status to other drugs, medicaments and biological substances
CPT/HCPCS: 99211

== ENCOUNTER → 2023-03-27 | Day surgery (SDC) | payer OTHER ==
[2023-03-22 16:34] VITALS: BMI 21.7
[~2023-03-27] MED LIST changes: -LACTATED RINGERS 1,000 ML IV SCH; +MIDAZOLAM 2 MG/2 ML VIAL ONE; +ROPIVACAINE 5MG/ML 20ML VIAL ONE; +fentaNYL (PF) 50 MCG/ML 2 ML AMP ONE
[2023-03-27 06:52] VITALS: TEMP 98.1
[2023-03-27] MEDS: LACTATED RINGERS 1,000 ML IV SCH (06:53)
[2023-03-27] MEDS: LACTATED RINGERS 1,000 ML IV ONE (07:51)
[2023-03-27 07:54] VITALS: RESP 14
--- NOTE | 2023-03-27 08:04 | P.PCN ---
Description of Procedure: Preprocedure diagnosis. 1. Lumbar spondylosis with facet joint arthropathy without myelopathy. 2. Lumbar degenerative disc disease. Procedure diagnosis. 1. Lumbar spondylosis with facet joint arthropathy without myelopathy. Space 2. Lumbar degenerative disc disease. Procedure.Bilateral radiofrequency thermocoagulation L3, L4 and L5 medial branch, with fluoroscopic guidance (fluoroscopy images are available in the radiology department) (to Denervate the facet joint at bilateral L4 5 and L5-S1 levels) Anesthesia. Moderate sedation with intravenous Versed 2 mg and fentanyl 100 g and local infiltration with ropivacaine 0.5%. In OR, continuous pulse ox, blood pressure, EKG and verbal communication was maintained. EBL minimal. Procedure indication. The patient with low back pain secondary to lumbar facet arthropathy who he had more than 50% relief of her pain with previous diagnostic lumbar medial branch block with local anesthetics. Discussed with the patient about the procedure, alternative treatment, possible complications which may include infection, bleeding, nerve damage, aggravation of pain, all of which could be permanent. Patient understands, all questions were answered. Patient signed consent and agreed to proceed with the procedure. Procedure description/technique. After getting consent, patient was taken to the OR and in prone position. The lumbar area was prepped and draped in the usual sterile fashion. After injecting 5 mL of plain 1% lidocaine subcutaneously, a 18-gauge 100 mm radiofrequency cannula with a 10 mm active tip was introduced under tunnel vision of the fluoroscope at the junction of the superior articular process with RIGHT ala of the sacrum. With slight oblique fluoroscope, after injecting 5 mL of plain 1% lidocaine subcutaneously, a 18- gauge 100 mm radiofrequency cannula with a 10 mm active tip was introduced under tunnel vision of the fluoroscope at the junction of the superior articular process with L5 transverse process and junction of the superior articular process with the L4 transverse process Each site then underwent sensory testing with 50 Hz and 0-1 V and motor testing at 2.5 Hz and 0-3 V with local stimulation but no radicular symptoms down the leg. Thereafter each sites underwent radiofrequency thermocoagulation at 80C for 90 seconds after injecting 1 mL of preservative-free 0.5% ropivacaine. Repeat radiofrequency ablation was done at each points after rotating the needle 180 with same setting . In exactly same way, LEFT sided RFA were done at the following 3 points. Junction of the superior articular process with left ala of the sacrum, junction of the superior articular process with the left L5 transverse process, junction of the superior articular process with left L4 transverse process after needle position confirmation by AP, oblique, lateral view of the fluoroscope, negative CSF negative blood negative paresthesia, sensory and motor stimulations followed by injection of 1 mL of 0.5% ropivacaine. Radiofrequency ablation settings where same as the other side, and second lesion was done after rotating the needle 180. RF needles were taken out. At the end of the procedure the skin was cleansed and Band-Aids were applied. Disposition . Patient tolerated the procedure well. No complication. She was placed in supine position and transferred to the recovery area in stable condition for observation and was discharged home from recovery room after meeting discharge criteria. Discharge instructions given to the patient by the staff. The patient were examined prior to discharge the patient will schedule a follow-up in the clinic in 2-4 weeks.
--- NOTE | 2023-03-27 08:11 | FL ---
EXAMINATION TYPE: FL guided pain mgmt statistic DATE OF EXAM: 03/27/2023 HISTORY: Fluoroscopy time Total dose area product (DAP) in uGy*m?, mGy*cm? (or similar): 0.98668 IMPRESSION: 1. Fluoroscopy time.
[2023-03-27 08:33] VITALS: BP 142/78; PULSE 88
== END ==
LOC: ORPAIN 06:16
PROVIDERS: ATTEND Pain Medicine Interventional Pain Medicine
DX: M51.36 Other intervertebral disc degeneration, lumbar region (principal); M47.816 Spondylosis without myelopathy or radiculopathy, lumbar region; Z88.0 Allergy status to penicillin; Z79.899 Other long term (current) drug therapy; Z90.710 Acquired absence of both cervix and uterus
CPT/HCPCS: 64635; 64636 ×2; 99152; 99153; J2250; J3010; J2795

== ENCOUNTER → 2023-04-18 | Outpatient (CLI) | payer OTHER ==
[2023-04-18 11:10] VITALS: BP 130/68; PULSE 59; RESP 15; TEMP 98.3
--- NOTE | 2023-04-18 12:43 | P.PAINPG ---
PQRS Measure Charge Sheet Comment: HISTORY OF PRESENT ILLNESS: A 62 yr old female presents today w severe and chronic LBP > 2 yrs secondary to DDD, spondylosis and facet arthropathy without myelopathy, BL Sacroiliitis for evaluation s/p BL RFA L3-L5. Pt state she experienced 100% pain relief s/p procedure. Pt states pain level is provoked at 6 /10 in intensity, constant, localized in the mid to lower lumbar spine, predominantly axial, achy in character w occasional shooting pain towards the BLEs. Pain is provoked by sitting for periods > 20 min. Pain is alleviated by injections in the past, PT x 4 wks which ended in Feb 2023, physician guided stretches daily since Feb 2023, medications, topical BioFreeze gel, heat, repositioning and rest. Oswestry axial pain score at 23. Interventional procedures include BL RFA L3-L5 Medications include Cymbalta, Flexeril, BioFreeze REVIEW OF ORGAN SYSTEMS: CONSTITUTIONAL: No fevers or chills. No recent weight loss. NEUROLOGICAL: + numbness and tingling along the distal extremities. No seizure disorders or headaches. MUSCULOSKELETAL: + pain PSYCHIATRIC: Denies current depression or suicidal thoughts. Physical Examinations : Constitutional : Cooperative , not in acute distress . Neurologic : Cranial nerve II to XII intact. No focal neurological deficits. Psychiatric : alert & oriented x 3. Matching mood & appropriate affect. Judgment & insight intact. Musculoskeletal : Cervical Spine Motor strength in the deltoid and biceps: Normal right side. Normal Left side Motor strength biceps and the wrist extensors: Normal right side . Normal left side Motor strength in the triceps muscle: Normal right side. Normal left side Deep tendon reflexes: Normal at the biceps. Normal at Brachioradialis. Normal at triceps Vertebral body tenderness to deep palpation over Cervical facet loading test: positive bilaterally Spurling test: positive bilaterally Neck distraction test: positive bilaterally Marie sign: positive bilaterally Lumbar spine Motor strength lower extremities ,thigh and legs 5/5 Right side , 5/5 Left side Deep tendon reflexes : Normal Knee Jerk. Normal Ankle Jerk Vertebral body tenderness over Glover Test positive Lumbar facet Loading Test: positive Right / positive Left Range of motion of the lumbar spine Flexion 30 degrees, extension 10 degrees Straight Leg Raise test: Left/ Right positive at degrees Aide test: positive right / positive left. Severe tenderness over the Sacroiliac joint on the Right / Left sides Gaenslen test: positive bilaterally Seated flexion test: positive bilaterally. Sacral spine : Severe tenderness over the Sacroiliac joint: right side / left side Range of motion: Flexion of the lumbar spine <60 degrees Range of motion: Extension of the lumbar spine <20 degrees Gaenslen's Test positive BL Aide test: positive right side / left side Thigh Thrust Test BL positivel Sacral Thrust Test Imaging: X-ray of the lumbar spine from 11/24/22 reviewed MRI noncontrast of the lumbar spine from 12/19/22 reviewed Assessment/ Plan : Lumbar Disk Collapses, Dextroscoliosis, BL Sacroiliitis Recommendation of BL SI injection #1. Risks, benefits of procedure discussed and patient verbalized understanding. Admits to anti- coagulant use or medical history of diabetes. Protocol for discontinuation/ continuation of medications adan procedure discussed. All questions answered. I have spent greater than 30 minutes on patient care today. Dr Millan was available by phone for the evaluation of this patient. The time was used to review the medical records including relevant urine studies and Prescription history (MAPs), review of the available imaging, evaluation and examination of the patient, coordination of care with the medical staff and if applicable referring physicians, as well as creation of the medical record PQRS Narrative: Smoking Status Current every day smoker Hx Alcohol Use (MH) Yes Home Medications: Ambulatory Orders ALPRAZolam [Xanax] 0.5 mg PO BID 11/05/17 Cyclobenzaprine [Flexeril] 10 mg PO BID 11/05/17 Desvenlafaxine Succinate [Pristiq] 100 mg PO QAM 11/05/17 Docusate Sodium [Dok] 100 mg PO BID 11/05/17 Hydroxychloroquine Sulfate [Plaquenil] 200 mg PO BID 11/05/17 Levothyroxine Sodium [Synthroid] 75 mcg PO QAM 11/05/17 busPIRone HCl [Buspar] 10 mg PO BID 11/05/17 Vitamin B Complex 2 each PO DAILY 07/11/19 DULoxetine HCL [Cymbalta] 60 mg PO BID 07/12/21 Sennosides/Docusate Sodium [Senna-S 8.6-50 mg Tablet] 2 tab PO DAILY PRN 07/12/21 rOPINIRole HCL [Requip] 1 mg PO TID 01/31/23 amLODIPine [Norvasc] 5 mg PO DAILY 02/27/23 Controlled Substance Measures - Controlled Substance Measures Is patient prescribed a controlled substance at discharge?: No
== END ==
LOC: PNWHC3 10:26
PROVIDERS: ATTEND Specialist
DX: M46.1 Sacroiliitis, not elsewhere classified (principal); M51.26 Other intervertebral disc displacement, lumbar region; M41.80 Other forms of scoliosis, site unspecified; F17.200 Nicotine dependence, unspecified, uncomplicated; F12.90 Cannabis use, unspecified, uncomplicated; Z88.0 Allergy status to penicillin; Z88.8 Allergy status to other drugs, medicaments and biological substances
CPT/HCPCS: 99211

== ENCOUNTER → 2023-04-19 | Outpatient (CLI) | payer OTHER ==
--- NOTE | 2023-04-22 09:01 | PE ---
EXAMINATION TYPE: PET CT fusion skull to thigh DATE OF EXAM: 04/19/2023 CLINICAL INDICATION:Female, 62 years old with history of C85.90; TECHNIQUE: Following the intravenous administration of 11.2 mCi of F-18 FDG, whole body images are performed from the skull base to the midthigh. Images are reviewed on the computer in the coronal, a xial, and sagittal planes. Reconstructed rotating images are created on independent workstation and reviewed on the computer. A non-contrast CT is performed in conjunction with the PET scan. Glucose level 102 mg/dL CT DLP: 341.57 mGycm, Automated exposure control for dose reduction was used. COMPARISON: CT None, PET/CT 03/31/2022 07/09/2020, FINDINGS: Mediastinal SUV mean is 1.8. Hepatic parenchyma SUV mean is 2.4. SKULL BASE AND NECK: * Mild uptake within the right neck lymph nodes max SUV 3.7 roughly 2.0 largest measuring 7 mm. CHEST, MEDIASTINUM, AND HILAR REGION: * Left axillary FDG avid lymph node axis SUV 4.7, proximal 0.1 measuring 7 mm. Not definitively seen on prior PET or 03/31/2022, 07/09/2020 ABDOMEN AND PELVIS: No suspicious radiotracer activity. MUSCULOSKELETAL STRUCTURES: No suspicious radiotracer activity. OTHER CT: Coronary artery calcification redemonstrated which is noted marker for underlying coronary artery disease. Ectasia of the ascending aorta measuring up to 3.6 cm in diameter. Patient has little intra-abdominal fat making evaluation suboptimal. There are occasional scattered t iny pelvic phleboliths. Scoliosis centered upper lumbar spine redemonstrated. IMPRESSION: 1. New FDG avid left axillary lymph node. Finding may represent reactive lymph node in the setting o f recent injection versus recurrence. Not appreciated on 03/31/2022. 2. There may be mild uptake within the right neck lymph nodes also present.
== END | disposition home or self-care (01) ==
LOC: RADPETMAIN 08:17
PROVIDERS: ATTEND Internal Medicine Hematology & Oncology
DX: C82.18 Follicular lymphoma grade II, lymph nodes of multiple sites (principal)
CPT/HCPCS: 78815; A9552